=== PATIENT | male | born 1960 | race African-American/Black ===

== ENCOUNTER 2017-05-05 12:32 | Emergency (ER) | payer OTHER ==
[2017-05-05 12:47] VITALS: BP 123/67; PULSE 100; RESP 20; TEMP 99.2; O2SAT 95
--- NOTE | 2017-05-05 13:24 | PD ---
HPI Chief Complaint: Alcohol/Drug Intoxication Time Seen by Provider: 12:40 Travel History International Travel<30 days: No Contact w/Intl Traveler<30days: No Traveled to known affect area: No History of Present Illness HPI Patient is a 56-year-old male presents to emergency room with EMS under [employer]ikh's Act. As per EMS, patient was found in the middle of the road intoxicated. He reports that he is an alcoholic and drinks every day for multiple years.. Reports that he drinks daily, he did in fact drink a few shots this morning. Patient denies suicidal/homicidal ideations at this time. Patient with no complaints. REPLACED BY [facility] Past Medical History Medical History: Denies Significant Hx Past Surgical History Surgical History: No Previous Surgery Social History Alcohol Use: Yes (EVERYDAY) Tobacco Use: No Substance Use: No Allergies-Medications (Allergen,Severity, Reaction): Coded Allergies: No Known Allergies (Verified Allergy, Severe, 05/05/17) Reported Meds & Prescriptions Reported Meds & Active Scripts Active No Active Prescriptions or Reported Medications Review of Systems General / Constitutional: No: Fever Eyes: No: Visual changes HENT: No: Headaches Cardiovascular: No: Chest Pain or Discomfort Respiratory: No: Shortness of Breath Gastrointestinal: No: Abdominal Pain Genitourinary: No: Dysuria Musculoskeletal: No: Pain Skin: No Rash Neurologic: No: Weakness Psychiatric: Positive: Substance Abuse, No: Depression, Suicidal Ideations, Homicidal Ideation Endocrine: No: Polydipsia Hematologic/Lymphatic: No: Easy Bruising Physical Exam Narrative GENERAL: Patient intoxicated SKIN: Focused skin assessment warm/dry. HEAD: Atraumatic. Normocephalic. EYES: Pupils equal and round. No scleral icterus. No injection or drainage. ENT: No nasal bleeding or discharge. Mucous membranes pink and moist. NECK: Trachea midline. No JVD. CARDIOVASCULAR: Regular rate and rhythm. No murmur appreciated. RESPIRATORY: No accessory muscle use. Clear to auscultation. Breath sounds equal bilaterally. GASTROINTESTINAL: Abdomen soft, non-tender, nondistended. Hepatic and splenic margins not palpable. MUSCULOSKELETAL: No obvious deformities. No clubbing. No cyanosis. No edema. NEUROLOGICAL: Awake and alert. No obvious cranial nerve deficits. Motor grossly within normal limits. Normal speech. PSYCHIATRIC: Colorful mood and affect; patient intoxicated, denies si/hi Data Data Last Documented VS Vital Signs Date Time Temp Pulse Resp B/P (MAP) Pulse Ox O2 Delivery O2 Flow Rate FiO2 05/05/17 12:47 99.2 100 20 123/67 (85) 95 [facility] Medical Decision Making Medical Screen Exam Complete: Yes Emergency Medical Condition: Yes Medical Record Reviewed: Yes Interpretation(s) Vital Signs Date Time Temp Pulse Resp B/P (MAP) Pulse Ox O2 Delivery O2 Flow Rate FiO2 05/05/17 12:47 99.2 100 20 123/67 (85) 95 Differential Diagnosis alcohol intoxication Narrative Course 56 year old male who presents to ER under [employer]ikh's Act as he was found intoxicated walking in the middle of the road. Patient admits to being an alcoholic and did have a few shots of alcohol this morning. Patient denies si/hi , reports that he does drink daily and has been drinking daily for the past few years. Plan to have patient sober up in the ER Diagnosis Primary Impression: Alcohol intoxication Qualified Codes: F10.920 - Alcohol use, unspecified with intoxication, uncomplicated Patient Instructions: General Instructions Additional Instructions: Please drink alcohol responsibly Please follow up with your primary care doctor Return to ER as needed Scripts No Active Prescriptions or Reported Meds Disposition: 01 DISCHARGE HOME Condition: Stable Rosa Nagel DO May 05, 2017 13:24
--- NOTE | 2017-05-05 17:13 | PD ---
Data Data Last Documented VS Vital Signs Date Time Temp Pulse Resp B/P (MAP) Pulse Ox O2 Delivery O2 Flow Rate FiO2 05/05/17 12:47 99.2 100 20 123/67 (85) 95 MDM Supervised Visit with GRZEGORZ: No Narrative Course Reassesed patient 5:13 PM. Standing at door. Speaks without slurring, stands and walks steady without assistance. Asking for a cell phone to call his brother. Same for d/c Diagnosis Primary Impression: Alcohol intoxication Qualified Codes: F10.920 - Alcohol use, unspecified with intoxication, uncomplicated Patient Instructions: General Instructions Additional Instruction: Please drink alcohol responsibly Please follow up with your primary care doctor Return to ER as needed Scripts No Active Prescriptions or Reported Meds Disposition: 01 DISCHARGE HOME Condition: Stable Semaj Winchester MD May 05, 2017 17:13
== END 2017-05-05 17:50 | disposition home or self-care (01) ==
LOC: NEPD 12:32
DX: F10.229 Alcohol dependence with intoxication, unspecified (principal)
CPT/HCPCS: 99281